=== PATIENT | male | born 1945 | race Caucasian/White ===

== ENCOUNTER 2022-09-10 10:06 | Emergency (ER) | payer MEDICARE, SELFPAY ==
[2022-09-10] VITALS (9 sets, daily range): BP systolic 104–160; BP diastolic 60–92; PULSE 87–115; RESP 17–22; TEMP 37–37.4; O2SAT 94–99
--- NOTE | ~2022-09-10 | CT_ITS ---
EXAMINATION: CT abdomen pelvis wo con DATE: 09/10/2022 11:38 INDICATION: Nausea, vomiting, and diarrhea. TECHNIQUE: Computed tomography (CT) of the abdomen and pelvis was performed without intravenous contr ast. Automated exposure control and iterative reconstruction technique were employed. The dose-length product was 1592.96 mGy-cm. COMPARISON: CT abdomen and pelvis 09/30/2017 FINDINGS: The visualized portions of the lung bases demonstrate mild emphysema and mild atelectasis. No pleural effusion. Cardiomegaly is noted. There are coronary artery calcifications. No pericardial effusion. The liver is normal. There are gallstones in the gallbladder, which is normal in size. The spleen, pancreas, and adrenal glands are normal. There are cysts in the kidneys measuring up to 2.0 c m on the right. There is a 1 mm stone in left kidney. The prostate is moderately enlarged. There are changes of right hemicolectomy. There are no pathologically enlarged lymph nodes. There is no free in traperitoneal fluid. There is severe lumbar spondylosis. There are hemangiomas in T12 and L2 vertebra l bodies. IMPRESSION: 1. No etiology for the patient's symptoms. Reviewed, dictated and finalized at location A. [employer]
--- NOTE | 2022-09-10 10:22 | ED.NAVMDI ---
HPI - Nausea/Vomiting/Diarrhea General Chief complaint: Nausea/Vomiting/Diarrhea Stated complaint: N/V/D Time Seen by Provider: 09/10/22 10:12 History of Present Illness HPI Narrative: Patient is a 76-year-old male with history of permanent atrial fibrillation, history of bowel resection due to suspicious polyp here for evaluation of nausea vomiting and diarrhea for the past 12 hours. Patient states he has been unable to tolerate any p.o. and has had numerous episodes of vomiting nonbloody/nonbilious emesis. He additionally has had numerous episodes of nonbloody diarrhea. He denies any significant abdominal pain but does feel distended. States that he has palpitations as well and had his heart rate in the 130s at home. He was able to tolerate his home meds including rate control meds for A-fib. No dysuria, urgency or frequency, fevers or chills, sick contacts. Related Data Allergies Allergy/AdvReac Type Severity Reaction Status Date / Time hornet venom Allergy Severe Anaphylactic Verified 09/10/22 10:26 Shock Iodinated Contrast Media Allergy Unknown Hives Verified 09/10/22 10:26 Review of Systems Review of Systems: Gen.: Denies fevers or chills Eyes: Denies eye pain or visual change ENT: Denies congestion Respiratory: Denies shortness of breath or cough CV: Reports palpitations GI: Reports nausea, vomiting, diarrhea denies burning, urgency, frequency or hematuria Musculoskeletal: Denies back pain or muscle pain Neuro: Denies numbness, tingling, weakness or focal weakness Skin: Denies rash Except as documented, all other systems reviewed and negative Exam Narrative: APPEARANCE: Well appearing, no pain in distress, well-nourished. Head: Normocephalic and atraumatic. EYES: PERRLA/EOMI, conjunctivae clear NOSE: No nasal drainage EARS: External ear normal in appearance THROAT: Oropharynx is clear. Mucous membranes are moist. NECK: Supple. No adenopathy, no masses. RESPIRATORY: Airway patent, respirations nonlabored. Clear to auscultation bilaterally, no rales, rhonchi, wheezing. CARDIOVASCULAR: Irregular rhythm, fast rate. without murmurs, rubs, or gallops. ABDOMINAL: Normoactive bowel sounds. Soft, nontender, nondistended. No rebound tenderness or guarding. MUSCULOSKELETAL: Extremities are warm and well-perfused. Moves all extremities well. No edema. NEURO: Normal speech. No focal neurologic deficits. SKIN: Skin is warm and dry. No rashes. PSYCHIATRIC: Normal affect/mood.. Course Vital Signs Vital signs: Vital Signs Temperature 98.6 F 09/10/22 10:07 Pulse Rate 115 H 09/10/22 10:07 Respiratory Rate 18 09/10/22 10:07 Blood Pressure 160/92 H 09/10/22 10:07 Pulse Oximetry 96 09/10/22 10:07 Temperature 99.4 F 09/10/22 11:01 Pulse Rate 112 H 09/10/22 11:16 Respiratory Rate 22 H 09/10/22 11:01 Blood Pressure 138/77 09/10/22 11:16 Pulse Oximetry 94 09/10/22 11:01 MDM - Nausea/Vomiting/Diarrhea MDM Narrative Medical decision making narrative: 76-year-old male here for evaluation of nausea vomiting and diarrhea over the past 12 hours. He is nontoxic in appearance, noted to have a slightly elevated heart rate upon arrival but vital signs otherwise normal. EKG was obtained which shows atrial fibrillation with a rate of 90. Patient is in chronic A-fib and is asymptomatic from this. Basic labs are unremarkable; lipase slightly elevated but not consistent with acute pancreatitis. Imaging of his abdomen and pelvis was done without contrast due to allergy which shows no acute findings. Patient was rehydrated, given antiemetics and Pepcid with marked improvement of his symptoms and he was able to tolerate p.o. His heart rate did come down with fluid administration. COVID and flu are negative. Likely gastroenteritis. He be discharged home to follow-up with his PMD and will be prescribed short course of antiemetics to use at home. Return precautions were discussed and he voiced understandi
[2022-09-10 10:37] LABS: Basophils Percent Auto 0.5 % (0.2-1.2); Eosinophils Percent Auto 0.4 % (0-4.4); Hematocrit 45.2 % (42.0-52.0); Hemoglobin 14.9 g/dL (14.0-18.0); Immature Granulocyte Absolute 0.01 K/mm3 (0.00-0.031); Immature Granulocyte Percent A 0.1 % (0-0.5); Lymphocytes Absolute Auto 0.35 K/mm3 (0.9-3.2); Lymphocytes Percent Auto 4.3 % (18.3-44.2); Mean Corpuscular Hemoglobin 30.3 pg (26-34); Mean Corpuscular Volume 92.1 fl (80-100); Mean Platelet Volume 9.2 fl (7.4-10.4); Monocytes Absolute Auto 0.4 K/mm3 (0.1-0.6); Monocytes Percent Auto 5.1 % (2.6-8.5); Neutrophils Absolute Auto 7.3 K/mm3 (1.3-6.7); Neutrophils Percent Auto 89.6 % (45.5-73.1); Platelet Count Result 147 k/mm3 (150-375); Red Blood Count 4.91 M/mm3 (4.6-6.20); White Blood Count 8.1 K/mm3 (4.5-10.0)
--- NOTE | 2022-09-10 10:43 | ECG_ITS ---
Measurements Intervals [place] Rate: 96 P: HI: 0 QRS: -42 QRSD: 93 T: 54 QT: 344 QTc: 435 Interpretive Statements ATRIAL FIBRILLATION LEFT AXIS DEVIATION LOW QRS VOLTAGE IN PRECORDIAL LEADS INCOMPLETE RIGHT BUNDLE BRANCH BLOCK ABNORMAL ECG NO PREVIOUS ECG AVAILABLE FOR COMPARISON Electronically Signed On 09-10-2022 14:35:32 [employer]ER [employer] by Kyler Tamayo D.O.
[2022-09-10 10:49] LABS: Alanine Aminotransferase 24 U/L (6-50); Albumin Level 4.8 g/dL (3.5-5.1); Alkaline Phosphatase 85 U/L (38-126); Anion Gap 9 mmol/L (8-16); Aspartate Amino Transferase 31 U/L (17-59); Bilirubin,Total 1.2 mg/dL (0.2-1.3); Blood Urea Nitrogen 20 mg/dL (9-20); Calcium 9.1 mg/dL (8.4-10.2); Carbon Dioxide 26 mmol/L (22-30); Chloride 100 mmol/L (98-107); Estimated CRCL calculation 86 ml/min; Estimated Glomerular Filt Rate > 60; Glucose 134 mg/dL (65-110); Lipase 426 U/L (23-300); Potassium 4.4 mmol/L (3.4-5.0); Sodium 135 mmol/L (137-145)
[2022-09-10] MEDS: SODIUM CHLORIDE 0.9% IV 1,000 ML 999 ML IV CONT (11:18)
[2022-09-10] MEDS: ONDANSETRON INJ 4 MG/2 ML VIAL IV PUSH (11:19)
[2022-09-10] MEDS: FAMOTIDINE 20 MG/2 ML VIAL IV PUSH (11:19)
[2022-09-10 11:22] LABS: Appearance Urine Clear (Clear); Bacteria Urine None Seen /hpf; Bilirubin Urine Negative (Negative); Blood Urine Trace (Negative); Color Urine Yellow (Yellow); Glucose Urine UA Negative (Negative); Ketones Urine Trace mg/dL (Negative); Leukocyte Esterase Ur Negative LEU/UL (Negative); Nitrate Urine Negative (Negative); Non Pathogenic Casts 0-2; Protein Urine Trace mg/dL (Negative); RBC Urine 0-2 /hpf (0-2); Specific Grav Ur 1.027 (1.001-1.035); Squamous Epithelial Cell Urine None seen /hpf (Few); Urobilinogen Urine 0.2 mg/dL (<2.0); WBC Urine 0-5 /hpf
--- NOTE | 2022-09-10 11:29 | PC.NURSE ---
Pt reports hives and a hoarse voice when receiving contrast with a previous cardiac cath. Provider aware, will proceed with imaging without contrast.
[2022-09-10 11:31] LABS: Add Urine Microscopic? YES
[2022-09-10 13:11] LABS: Influenza A QL RT-PCR Negative (Negative); Influenza B QL RT-PCR Negative (Negative); SARS-CoV-2 RNA PCR Negative
== END 2022-09-10 13:55 | disposition home or self-care (01) ==
PROVIDERS: Emergency Medicine; Emergency Provider Physician Assistant; PCP Internal Medicine
DX: K52.9 Noninfective gastroenteritis and colitis, unspecified (principal); Z20.822 Contact with and (suspected) exposure to COVID-19; I48.91 Unspecified atrial fibrillation
CPT/HCPCS: 36415; 74176; 80053; 81001; 83690; 85025; 87636; 93005; 99284; J2405; J7030

== ENCOUNTER 2023-06-14 02:46 | Day surgery (SDC) | payer MEDICARE, SELFPAY ==
[2023-05-30 11:15] VITALS: BMI 31.6
--- NOTE | 2023-06-09 16:09 | PC.NURSE ---
Spoke with _PATIENT___ regarding medication __XARELTO . Pt. verbalizes understanding that the last dose of ___XARELTO is to be taken on __06/11/2023 and the Endoscopist will instruct them when to restart after the procedure.
--- NOTE | 2023-06-12 10:23 | SUR.PREOP ---
Patient called regarding upcoming procedure. Reviewed preop instructions, appointment times, and procedure prep.
--- NOTE | 2023-06-13 18:42 | P.HP_ITS ---
History of Present Illness History of Present Illness Consent: Risks, benefits, and alternatives have been discussed and questions answered. Patient agrees to proceed with procedure. Chief complaint: hx of colon polyps Narrative: Onesimo Fernandez is a 77 year old male Referred for colon cancer screening. In 2007 he was found have a large polyp with high-grade dysplasia. This required a right hemicolectomy. His last colonoscopy 5 years ago was negative f or new polyps. Review of Systems Review of Systems: All systems reviewed & are unremarkable except as noted in HPI and below PMFSH Social History Social History Alcohol intake: current Drinks per week: 1 Living arrangements: with family Meds Home Medications and Allergies Home Medications Medication Instructions Recorded Confirmed Type aspirin 81 mg capsule See Rx Instructions .Route .COMPLEX 05/30/23 06/14/23 History atorvastatin 80 mg tablet 80 mg PO DAILY 05/30/23 05/30/23 History celecoxib 200 mg capsule 200 mg PO DAILY 05/30/23 06/14/23 History finasteride 5 mg tablet 5 mg PO DAILY 05/30/23 06/14/23 History metoprolol tartrate 50 mg tablet 50 mg PO BID 05/30/23 06/14/23 History multivitamin with minerals-folic 1 tablet PO DAILY 05/30/23 05/30/23 History acid 0.4 mg tablet rivaroxaban 20 mg tablet (Xarelto) 20 mg PO DAILY 05/30/23 06/14/23 History Allergies Allergy/AdvReac Type Severity Reaction Status Date / Time hornet venom Allergy Severe Anaphylactic Verified 06/14/23 13:00 Shock Iodinated Contrast Media Allergy Unknown Hives Verified 06/14/23 13:00 Exam 2 Resp: Auscultation: clear to auscultation bilaterally Cardio: Rate: regular rate Rhythm: regular rhythm GI: GI Palp: Yes Soft to palpation and No Tenderness to palpation present (GI) Assessment and Plan Assessment and plan (1) Colon cancer screening: Code(s): Z12.11 - Encounter for screening for malignant neoplasm of colon Status: Acute Assessment and Plan: Colonoscopy with possible biopsy or polypectomy or cautery or injection of substances.
[2023-06-14 13:05] VITALS: BP 152/86; PULSE 80; RESP 18; TEMP 36.2; O2SAT 100; BMI 31.4
[2023-06-14] MEDS: LACTATED RINGERS 1,000 ML 150 ML IV CONT (13:08)
--- NOTE | 2023-06-14 13:35 | WPDANESEPPF ---
Anes - Initial Pre Proc Eval Procedure: Operation Date: 06/14/23 13:30 Proposed Procedures p Colonoscopy - Lion Neely MD Date/Time: 06/14/23 13:35 Surgeon: Lion Neely MD Pre Op Diagnosis: hx of colon polyps Patient Data Age: 77 Gender: M Height: 1.91 m Weight: 113.9 kg Last Vital Signs Temp 97.1 F L 06/14/23 13:05 Pulse 80 06/14/23 13:05 Resp 18 06/14/23 13:05 BP 152/86 H 06/14/23 13:05 Pulse Ox 100 06/14/23 13:05 O2 Del Method Room Air 06/14/23 13:05 Allergies Allergy/AdvReac Type Severity Reaction Status Date / Time hornet venom Allergy Severe Anaphylactic Verified 06/14/23 13:00 Shock Iodinated Contrast Media Allergy Unknown Hives Verified 06/14/23 13:00 Home Medications Medication Instructions Recorded Confirmed Type aspirin 81 mg capsule See Rx Instructions .Route .COMPLEX 05/30/23 06/14/23 History atorvastatin 80 mg tablet 80 mg PO DAILY 05/30/23 05/30/23 History celecoxib 200 mg capsule 200 mg PO DAILY 05/30/23 06/14/23 History finasteride 5 mg tablet 5 mg PO DAILY 05/30/23 06/14/23 History metoprolol tartrate 50 mg tablet 50 mg PO BID 05/30/23 06/14/23 History multivitamin with minerals-folic 1 tablet PO DAILY 05/30/23 05/30/23 History acid 0.4 mg tablet rivaroxaban 20 mg tablet (Xarelto) 20 mg PO DAILY 05/30/23 06/14/23 History Patient hx anesthesia problems: none Family hx anesthesia problems: none Results Review: All pre-operative results and documents have been reviewed as part of the pre-operative evaluation. [facility] Social History Social History Alcohol intake: current Drinks per week: 1 Living arrangements: with family Anes - Eval Final PreProcedure Day of Procedure 06/14/23 13:35 Patient weight: obese Heart: irregular rhythm Lungs: clear to auscultation Airway: Mallampati scale class II Neurological: alert and oriented Last oral intake: >/= 8 hours ASA classification: III Emergent: no Anesthetic plan: proceed Anesthesia type and monitoring: general GIVS and standard monitoring Results Review: All pre-operative results and documents have been reviewed as part of the pre-operative evaluation. Informed Consent: The patient's anesthetic plan and its attendant risks and benefits were discussed with the patient/family/POA. Questions were solicited and answers provided to the satisfaction of the patient/family/POA.
[2023-06-14 14:03] VITALS: BP 107/63; PULSE 82; RESP 22; O2SAT 98
[2023-06-14 14:13] VITALS: BP 133/78; PULSE 78; RESP 26; O2SAT 100
[2023-06-14 14:27] VITALS: BP 134/78; PULSE 86; RESP 27; O2SAT 100
--- NOTE | 2023-06-14 14:57 | SUR.PHASEII ---
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
== END 2023-06-14 14:50 | disposition home or self-care (01) ==
PROVIDERS: PCP Internal Medicine; Visit Provider Internal Medicine Gastroenterology
PROC: 0DJD8ZZ Inspection of Lower Intestinal Tract, Via Natural or Artificial Opening Endoscopic (ICD-10-PCS; CPT 45378; principal; 2023-06-14 13:30)
DX: Z12.11 Encounter for screening for malignant neoplasm of colon (principal); K62.1 Rectal polyp; Z98.0 Intestinal bypass and anastomosis status; Z90.49 Acquired absence of other specified parts of digestive tract; E66.9 Obesity, unspecified; Z68.31 Body mass index [BMI] 31.0-31.9, adult
CPT/HCPCS: 45380; 45385; 88305; J2704; J7120

== ENCOUNTER 2024-01-16 10:38 | Outpatient (CLI) | payer MEDICARE, SELFPAY ==
--- NOTE | ~2024-01-16 | CT_ITS ---
CT of the Abdomen and Pelvis: Indication: Abdominal pain Technique: 2.5 mm axial scans were obtained through the abdomen and pelvis following intravenous adm inistration of 100 cc of Omnipaque 350. Dose reduction technique was used on this scan by utilizing a utomated exposure control and iterative reconstruction technique. The dose-length product (DLP) was 1 159.63 mGy-cm. COMPARISON: 09/10/2022 Findings: Scans through the lung bases are unremarkable. The liver, spleen, pancreas, adrenals and kidneys are within normal limits. Multiple small gallstones are present. There are atherosclerotic calcifications of the aorta. No lymphadenopathy. No bowel obstruction or bowel wall thickening. Probable prior partial colectomy.. Images through the pelvis were performed. Possible urinary bladder wall thickening versus underdisten tion. Prostate gland is significantly enlarged. No ascites. Impression: Cholelithiasis. Possible cystitis versus urinary bladder under distention. Correlate clinically. Significantly enlarged prostate gland. Reviewed, dictated and finalized at location . Impression: Cholelithiasis. Possible cystitis versus urinary bladder under distention. Correlate clinically . Significantly enlarged prostate gland.
[2024-01-16 11:00] LABS: Estimated Glomerular Filt Rate > 60
== END 2024-01-16 10:39 ==
LOC: MICIMG 10:39
PROVIDERS: PCP Internal Medicine; Visit Provider Internal Medicine
DX: R10.31 Right lower quadrant pain (principal); K80.20 Calculus of gallbladder without cholecystitis without obstruction
CPT/HCPCS: 74177; Q9967

== ENCOUNTER 2024-01-18 07:55 | Outpatient (CLI) | payer MEDICARE, SELFPAY ==
[2024-01-18 09:06] LABS: Alanine Aminotransferase 24 U/L (6-50); Albumin Level 4.2 g/dL (3.5-5.1); Alkaline Phosphatase 88 U/L (38-126); Amylase 97 U/L (30-110); Aspartate Amino Transferase 35 U/L (17-59); Bilirubin,Total 0.6 mg/dL (0.2-1.3); Lipase 108 U/L (23-300)
== END 2024-01-18 07:56 | disposition home or self-care (01) ==
LOC: ANHSURGERY 07:57
PROVIDERS: PCP Internal Medicine; Visit Provider Surgery
DX: K80.10 Calculus of gallbladder with chronic cholecystitis without obstruction (principal)
CPT/HCPCS: 36415; 80076; 82150; 83690

== ENCOUNTER 2024-01-22 00:36 | Day surgery (SDC) | payer MEDICARE, SELFPAY ==
[2024-01-17 14:42] VITALS: BMI 31.1
--- NOTE | 2024-01-17 14:43 | PC.NURSE ---
Report to the Outpatient Waiting Room, entrance under the green pavilion located off [facility], at time _0600_ on date _[id number]_. Planned Procedure Time: _0730_. Time changes happen often and if your time is changed the preop area will call you the afternoon before. - You and your visitor will be asked to self-screen and do not enter if you have any COVID symptoms. - A mask is optional within the hospital at this time. Patients may have clear liquids (water, carbonated beverages, clear teas, apple juice) until 3 hours prior to surgery with a maximum of 20 ounces. - No food from midnight until time of surgery Take the following medications with a SIP of water the morning of surgery: ____Metoprolol DO NOT STOP ANY OF YOUR OTHER PRESCRIPTION MEDICATIONS PRIOR TO SURGERY ?EXCEPT THE FOLLOWING Medications to discontinue per physician ____Xarelto and Multivitamin Date to take last view [id number] Please no make-up, nail portuguese, hairspray, perfume, deodorant, or body powder the day of surgery. No jewelry (including any body piercings) or valuables the day of surgery, leave them at home. Please take a shower or bath the night before, or the morning of, surgery with an antibacterial soap. Wear comfortable, loose fitting clothing. - Jewelry must be removed prior to entering the operating room. Rings and piercings that are not removed may be cut off. - The hospital will not accept responsibility for valuables. - Please leave all valuables, including medications, at home the day of surgery. If you are going home after surgery, a licensed pedicab driver must drive you home. - NO public transportation without another adult if you receive anesthesia. - We recommend that an adult stay with you for 24 hours following discharge. - We also recommend that you do not drive, make important decision, drink alcoholic beverages, or take any drugs that were not prescribed by your health care provider for at least 24 hours after your discharge time. Follow any additional instructions given to you from your surgeon. If you or anyone in your household have experienced Covid symptoms in the past week, please notify your surgeon or the nurse liaison at the phone number below for possible testing. Telephone instructions given to _Marlone__and asked if any additional questions and then verbalized understanding. Patient advised to call surgeon office or pre surgery nurse liaison [phone] if any additional questions.
[2024-01-22] VITALS (9 sets, daily range): BP systolic 127–162; BP diastolic 68–91; PULSE 60–71; RESP 16–20; TEMP 36.2–36.4; O2SAT 96–100; BMI 31.0
--- NOTE | 2024-01-22 05:53 | ECG_ITS ---
Test Date: 2024-01-22 06:54:20 Measurements Intervals [place] Rate: 58 P: 0 TX: 0 QRS: -31 QRSD: 138 T: 20 QT: 429 QTc: 423 Interpretive Statements ATRIAL FIBRILLATION WITH SLOW VENTRICULAR RESPONSE LEFT AXIS DEVIATION RIGHT BUNDLE BRANCH BLOCK INFERIOR INFARCT, AGE INDETERMINATE ABNORMAL ECG No previous ECG available for comparison Electronically Signed On 01-22-2024 08:19:46 CDT by Kyler Tamayo D.O.
[2024-01-22] MEDS: ACETAMINOPHEN 500 MG TABLET 1000 MG PO (06:59)
[2024-01-22] MEDS: KETOROLAC 15 MG/ML VIAL (*BKC) IV PUSH (06:59)
[2024-01-22] MEDS: LACTATED RINGERS 1,000 ML 30 ML IV CONT ×2 (06:59→10:02)
--- NOTE | 2024-01-22 07:21 | WPDHPUPDATE1 ---
History and Physical Update Update Date/Time: 01/22/24 07:21 History and Physical has been reviewed, including an updated exam of the patient. There are NO changes in the patient's condition. Risks, benefits, and alternatives have been discussed and questions answered. Patient agrees to proceed with procedure.
--- NOTE | 2024-01-22 07:25 | WPDANESEPPF ---
Anes - Initial Pre Proc Eval Procedure: Operation Date: 01/22/24 07:30 Proposed Procedures p Laparoscopic Cholecystectomy Possible Open - Trevor Grajeda MD Date/Time: 01/22/24 07:25 Surgeon: Trevor Grajeda MD Pre Op Diagnosis: chronic cholecystitis with stones Patient Data Age: 78 Gender: M Height: 1.91 m Weight: 112.7 kg Last Vital Signs Temp 97.2 F L 01/22/24 06:54 Pulse 60 01/22/24 06:54 BP 127/71 01/22/24 06:54 Pulse Ox 100 01/22/24 06:54 O2 Del Method Room Air 01/22/24 06:54 Allergies Allergy/AdvReac Type Severity Reaction Status Date / Time hornet venom Allergy Severe Anaphylactic Verified 01/22/24 06:34 Shock Iodinated Contrast Media Allergy Unknown Hives Verified 01/22/24 06:34 Home Medications Medication Instructions Recorded Confirmed Type aspirin 81 mg capsule See Rx Instructions .Route .COMPLEX 05/30/23 01/17/24 History atorvastatin 80 mg tablet 80 mg PO DAILY 05/30/23 01/17/24 History finasteride 5 mg tablet 5 mg PO DAILY 05/30/23 01/17/24 History metoprolol tartrate 50 mg tablet 50 mg PO BID 05/30/23 01/17/24 History multivitamin with minerals-folic 1 tablet PO DAILY 05/30/23 01/17/24 History acid 0.4 mg tablet rivaroxaban 20 mg tablet (Xarelto) 20 mg PO DAILY 05/30/23 01/17/24 History Patient hx anesthesia problems: none Family hx anesthesia problems: none Results Review: All pre-operative results and documents have been reviewed as part of the pre-operative evaluation. [facility] Past Medical History Medical History Afib Surgical History Surgical History History of colon resection History of coronary artery bypass surgery History of mandibular surgery History of partial knee replacement right History of tonsillectomy and adenoidectomy Family History Family History Sibling Diabetes mellitus Other Heart disease Social History Social History Smoking status: Never smoker Alcohol intake: current Drinks per week: 1 Substance use type: does not use Do You Feel Safe in your Home?: Yes Lack of Transportation: No Lack of Food: Never True Current Housing: I Have Housing Concerned About Future Housing: No Difficulty Paying Gas/Electric Bills: No Difficulty Paying for Meds: No Currently Unemployed: No Education: Bachelor's Degree Difficulty w/ Childcare or Family Care: No Living arrangements: with family Occupation/Education: retired Spiritual care concerns: No Anes - Eval Final PreProcedure Day of Procedure 01/22/24 07:25 Patient weight: normal Heart: irregular rhythm Lungs: clear to auscultation Airway: Mallampati scale and special considerations (Missing teeth on the lower right aspect. ) Neurological: alert and oriented Last oral intake: >/= 8 hours ASA classification: III Emergent: no Anesthetic plan: proceed Anesthesia type and monitoring: general ETT and standard monitoring Results Review: All pre-operative results and documents have been reviewed as part of the pre-operative evaluation. EKG reviewed. Pt w hx of CABG , sees his upper stitcher once yearly, a fib, ARCHANA on CPAP. Pt exercises daily, no cp or sob. Informed Consent: The patient's anesthetic plan and its attendant risks and benefits were discussed with the patient/family/POA. Questions were solicited and answers provided to the satisfaction of the patient/family/POA.
[2024-01-22] MEDS: ceFAZolin 2 GM/D5W 50 ML 2 GM/50 ML BAG IVPB (07:33)
[2024-01-22] MEDS: LIDO 1%/EPINEPHRINE 1:100,000 50 ML VIAL 30 ML INFILTRATE (08:10)
[2024-01-22] MEDS: BUPivacaine HCL 0.5% 10 ML AMP 30 ML INFILTRATE (08:12)
--- NOTE | 2024-01-22 10:45 | PM.OP ---
Procedure Note - Brief Procedure Note - Brief Date of procedure: 01/22/24 Chronic cholecystitis with stones, umbilical hernia Procedure performed: Laparoscopic cholecystectomy with extensive laparoscopic adhesiolysis and open umbilical hernia repair without mesh. Surgeon: Trevor Grajeda MD Anesthesia: GETA Findings: Adhesions of small bowel to the abdominal wall in the periumbilical region and adhesiolysis took approximately 30minutes laparoscopically. Chronic cholecystitis multiple black gallstones. Implants: None Estimated blood loss (mL): 25 Drains: No Packing: No Pathology: Yes (Gallbladder and gallstones to pathology) Complications: No immediate complications Condition: Stable Disposition: PACU
[2024-01-22] MEDS: oxyCODONE HCL (*CRX) 5 MG TAB IR PO (11:28)
--- NOTE | 2024-01-22 17:01 | W.PM.PROC2 ---
Procedure Note - Detailed Date of Procedure 01/22/24 Pre-op Diagnosis Chronic cholecystitis secondary to cholelithiasis. Post-op Diagnosis Other ( Chronic cholecystitis secondary to cholelithiasis, extensive intra-abdominal adhesions) Procedure Performed Laparoscopic cholecystectomy with extensive laparoscopic abdominal adhesiolysis Open umbilical hernia repair without mesh Surgeon Trevor Grajeda MD Anesthesia General Indications Patient is a 70-year-old gentleman who the past several months has been having intermittent right upper quadrant pain that radiates to his back. It is associated with eating fatty and spicy foods. Abdominal ultrasound showed multiple gallstones wound gallbladder some gallbladder wall thickening. Findings Patient had pretty severe chronic cholecystitis secondary to cholelithiasis. There also copious adhesions of small bowel to the anterior abdominal wall pronounced in the periumbilical region. Extensive adhesiolysis pre done laparoscopically to allow placement of additional ports and to successfully perform a laparoscopic cholecystectomy. The additional time needed to perform the laparoscopic adhesiolysis was [id number] which was essentially doubled the time of the laparoscopic cholecystectomy. Description of Procedure After informed consent was obtained patient brought to the operating room where he was placed in the supine position and general endotracheal anesthesia was administered. The abdomen was then prepped draped usual sterile fashion. Time-out was then performed correctly identifying the patient as well as procedure to be performed verifying he was given perioperative IV antibiotics. I 1st attempted placement of a 5mm left upper quadrant trocar port. The port was placed into the abdomen under direct visualization. Once inside the abdomen in the left upper quadrant and the epigastric region and there were adhesions of the bowel the undersurface anterior abdominal wall obscuring the of the periumbilical region and the gallbladder. I then abandoned the left upper quadrant entry attempted to enter the abdomen in the umbilical region. Initially this was unsuccessful as I was able to gain entrance to the abdomen just at the umbilicus but again adhesions obscured my view of the epigastric region of the abdomen and the gallbladder. I then attempted to get good visualization by placing a 5mm Optiview port in the right upper quadrant which was successful this time and I could see that there were copious adhesions of the omentum and small bowel to the undersurface anterior abdominal wall in the periumbilical region and left upper quadrant. I could then see 1 of from the right upper quadrant place a Seo trocar port just above the umbilicus safely under direct visualization. Under then see around a few he shows the left upper quadrant to place a 5mm left upper quadrant trocar port and a 5mm left lateral abdominal wall trocar port. Working through all the ports over the course of the next 30 to 40 minutes I performed extensive laparoscopic adhesiolysis with sharp laparoscopic azalea to release the omentum and loops of small bowel from the anterior abdominal wall. Great care was taken to make sure that this was performed without injuring any loops of bowel. In some places I took down the bowel by incising the peritoneum and posterior rectus sheath and leaving that with the fall. Eventually after this adhesiolysis I was then able to visualize the gallbladder right upper quadrant. The gallbladder was distended and moderately thickened with the appearance of chronic inflammation. I was able who gallbladder laparoscopic grasper at the dome and elevate the gallbladder. Stripped down visceral adhesions of the omentum to the gallbladder wall. Eventually is able to place a 2nd grasper on the infundibular gallbladder continued dissection of the visceral peritoneum off of the infundibular gallbladder. Eventua
== END 2024-01-22 12:10 | disposition home or self-care (01) ==
PROVIDERS: PCP Internal Medicine; Visit Provider Surgery
PROC: 0FT44ZZ Resection of Gallbladder, Percutaneous Endoscopic Approach (ICD-10-PCS; CPT 47562; principal; 2024-01-22 07:30)
DX: K80.10 Calculus of gallbladder with chronic cholecystitis without obstruction (principal); K66.0 Peritoneal adhesions (postprocedural) (postinfection); K42.9 Umbilical hernia without obstruction or gangrene; I48.91 Unspecified atrial fibrillation; Z79.01 Long term (current) use of anticoagulants; Z79.82 Long term (current) use of aspirin; Z90.49 Acquired absence of other specified parts of digestive tract
CPT/HCPCS: 47562; 88304; 93005; A9270; J0690; J1170; J1885; J2250; J2405; J2704; J3010; J7120